=== PATIENT | female | born 1990 | race Hispanic/Latino ===

== ENCOUNTER → 2017-04-19 | Day surgery (SDC) | payer OTHER ==
[~2017-04-19] MED LIST: FLU VACC QS2017-18 36 mo. & older 0.5 ML SYRINGE IM ONE
[2017-04-19 20:28] VITALS: BMI 25.4
--- NOTE | 2017-04-19 21:17 | PRG ---
DATE OF SERVICE: 04/19/2017 In brief, we have reevaluated the patient's medical record and we find that earlier in the month of April. She was admitted to the antepartum moya and was given Celestone for lung maturity. This is based on admission record found in the EMR. We will continue with her cervical length ultra sound for now a cath UA.
--- NOTE | 2017-04-19 21:33 | PRG ---
DATE OF SERVICE: 04/19/2017 TIME: 2050 hours. LOCATION: Labor and Delivery triage. This is a patient of Dr. Hamlin. REASON FOR EVALUATION: This is a patient at 28 weeks with pelvic pressure. HISTORY OF PRESENT ILLNESS: In brief, this is a 27-year-old 5, para 3, SAB 1 with a due date of 07/09/2017, puts her at 28 weeks. She has a complaint of decreased movement and lower pelvic pressure. She denies any real contractions, although she may have had some uterine cr amping earlier today. She denies any gush of fluid vaginally or any vaginal bleeding. She denies a ny recent trauma. She states she has had possibly some mucousy discharge earlier today. She states that she received \\\\"steroids\\\\" last week, although we have no record of that. She was last seen in Labor and Delivery on 03/14/[address] record [address] Kern and at that time her cervix was closed. She also complains of some headaches that have been on and off. REVIEW OF SYSTEMS: Complete review of systems was checked and is otherwise negative unless specifie d in the HPI. ALLERGIES: None. PAST MEDICAL HISTORY: Negative. PAST SURGICAL HISTORY: Negative. PHYSICAL EXAMINATION: VITAL SIGNS: Blood pressure is 102/63, pulse is in the 80s-90s, temperature is 98.4. GENERAL: Clinically, she is in no acute distress. ABDOMEN: Soft and nontender and size consistent with dates. There is no evidence of vaginal bleedi ng or rupture of membranes grossly on exam. Cervical exam is currently deferred until we get a guadalupe svaginal ultrasound for cervical length. On monitor, heart tones are in the 130s to 140s with reactivity. There is moderate vari ability. There are no contractions on tocodynamometer. INTERVENTIONS ORDERED: I have ordered a catheterized urine specimen for analysis as well as a trans vaginal ultrasound for cervical length. ASSESSMENT: This is a 27-year-old , G5, P3 with no prior C-sections, who has a due date of 07/09/2017 with pelvic pressure - NOS. No clinical evidence of labor that is active at this time. We will check her cervix after cervical length if necessary. PLAN: 1. Check cervical length. 2. Cath UA. 3. Expectant management. 4. monitoring for now.
--- NOTE | 2017-04-19 22:20 | PRG ---
DATE OF SERVICE: 04/19/2017 TIME: 2208 ULTRASOUND FOLLOWUP In brief, the patient had a transvaginal ultrasound, which showed a normal cervical length greater t santillan 2.5 cm (it was 2.8 cm). Additionally, there is no evidence of placenta previa as her cervix and placental edge were 3 cm away. We are just waiting for a cath UA for likely disposition home.
--- NOTE | 2017-04-19 22:27 | ULT ---
LIMITED OB ULTRASOUND: 04/19/17 HISTORY: Exam requested to evaluate for cervical length and placenta previa. FINDINGS/IMPRESSION: The cervical length measures 2.8 cm. The placenta is posteriorly located without evidence of placent a previa. POS: DEBORAH
[2017-04-19 22:32] LABS: Bacteria/HPF None Seen HPF (None Seen); Hyaline Casts/LPF 0-3 HYALINE CAST LPF (0-3 Hyaline); RBC/HPF None Seen HPF (0-3); Squamous Epithelial 0-3 HPF (0-3); WBC/HPF 0-3 HPF (0-3)
--- NOTE | 2017-04-20 00:09 | PRG ---
DATE OF SERVICE: 04/19/2017 TIME: 2100 PLACENTA LOCATION NOTE In brief, I just reviewed with the patient that we will do a transvaginal ultrasound to check cervic al length. We also reviewed her history that she has a possible marginal or partial previa on her p rior diagnosis. Again, she had been checked in March with Dr. Shahnaz Kern and was found to be closed. We will await the ultrasound to give us our cervical length and we will notify the sonogra pher that she has potentially a partial previa for low pressure to be placed on the vaginal transduc er. We will also await the cath urine at this time. There is no evidence of vaginal bleeding at th is time.
== END | disposition home or self-care (01) ==
LOC: L&D/OP 19:31
PROVIDERS: ATTEND Obstetrics & Gynecology
DX: O36.8130 Decreased fetal movements, third trimester, not applicable or unspecified (principal); O99.89 Other specified diseases and conditions complicating pregnancy, childbirth and the puerperium; R10.2 Pelvic and perineal pain; Z3A.28 28 weeks gestation of pregnancy; Z79.899 Other long term (current) drug therapy
CPT/HCPCS: 76815; 81015